=== PATIENT | male | born 1980 | race Caucasian/White ===

== ENCOUNTER 2017-09-09 20:31 | Emergency (ER) | payer OTHER ==
--- NOTE | 2017-09-09 20:47 | ER Document Report ---
HPI - HPI Patient complains to provider of: flu symptoms Onset: Other Onset/Duration: Persistent Quality of pain: Achy Severity: Severe Pain Level: 4 Context: Patient presents emergency department with complaints of flu symptoms. Reports positive flu exposure. Reports fever since Sunday unsure of his temperature. Also complains of body aches sore throat runny nose and nausea. Denies vomiting diarrhea. Did not receive flu vaccine this year. Patient took DayQuil at 1800 and Tylenol at 10:00 this morning. Associated Symptoms: Body/muscle aches, Fever, Sore throat Exacerbated by: Denies Relieved by: Denies Similar symptoms previously: No Recently seen / treated by doctor: No Past Medical History - General Information source: Patient - Social History Smoking Status: Unknown if Ever Smoked Cigarette use (# per day): No Frequency of alcohol use: None Drug Abuse: None Occupation: [employer] Lives with: Alone Family History: Reviewed & Not Pertinent Patient has suicidal ideation: No Patient has homicidal ideation: No - Medical History Medical History: Negative Surgical Hx: Negative Vertical Provider Document - CONSTITUTIONAL Agree With Documented VS: Yes Exam Limitations: No Limitations General Appearance: WD/WN, No Apparent Distress - nontoxic looking - HEENT HEENT: Atraumatic, Normocephalic, Pharyngeal Erythema - clear voice, opens mouth wide, no trismus. negative: Conjuctival Injection, Pharyngeal Exudate, Pharyngeal Tenderness, Tympanic Membrane Red, Tympanic Membrane Bulging - NECK Neck: Normal Inspection, Supple. negative: Lymphadenopathy-Left, Lymphadenopathy-Right - RESPIRATORY Respiratory: Breath Sounds Normal, No Respiratory Distress O2 Sat by Pulse Oximetry: 98 - CARDIOVASCULAR Cardiovascular: Regular Rhythm, Tachycardia - GI/ABDOMEN Gastrointestinal: Abdomen Soft, Abdomen Non-Tender - BACK Back: Normal Inspection - MUSCULOSKELETAL/EXTREMETIES Musculoskeletal/Extremeties: MAEW, FROM - NEURO Level of Consciousness: Awake, Alert, Appropriate Motor/Sensory: No Motor Deficit - DERM Integumentary: Warm, Dry, No Rash Course - Re-evaluation Re-evalutation: 09/09/17 20:59 Patient reports positive flu exposure. Patient also has typical symptoms for flu. Will treat with Tamiflu nausea medicine encourage patient to push fluids and follow-up with primary care provider. - Vital Signs Vital signs: Temp Pulse Resp BP Pulse Ox 100.6 F H 119 H 20 131/103 H 98 09/09/17 20:42 09/09/17 20:42 09/09/17 20:42 09/09/17 20:42 09/09/17 20:42 Discharge - Discharge Clinical Impression: Flu-like symptoms, Nausea, Sore throat Condition: Stable Disposition: HOME, SELF-CARE Instructions: Acetaminophen, Antinausea Medication ([facility]), Influenza ([facility]), Nausea or Vomiting, Nonspecific ([facility]) Additional Instructions: *You have been evaluated for flu like symptoms today, sore throat, body aches, nausea *Increase fluid intake as discussed *Take medication as prescribed *Monitor your temperature, take Tylenol as indicated *Follow up with a primary care provider within 5 days *Good handwashing *Return to ED for worsening condition, changes, needs Prescriptions: Oseltamivir Phosphate [Tamiflu 75 mg Capsule] 75 mg PO BID #10 capsule Forms: Return to School, Return to Work
[2017-09-09] MEDS ORDERED: ONDANSETRON ODT 4 MG TAB (6 TAB/ER DISP) PO PRN (20:54)
[2017-09-09] MEDS ORDERED: ACETAMINOPHEN 325 MG TABLET PO ONE (20:54)
[2017-09-09 21:18] VITALS: BP 142/92
== END 2017-09-09 21:16 | disposition home or self-care (01) ==
LOC: ER 20:31
DX: J02.9 Acute pharyngitis, unspecified (principal); R50.9 Fever, unspecified; M79.1 Myalgia
CPT/HCPCS: 99283